=== PATIENT | female | born 1990 | race Caucasian/White ===

== ENCOUNTER → 2017-10-28 | Outpatient (CLI) | payer OTHER ==
[~2017-10-28] MED LIST: GASTROGRAFIN SOLUTION 30ML (Q9963) As Ordered; ISOVUE-370 76% 100ML VIAL (Q9967) As Ordered
== END ==
LOC: M RAD 14:03
DX: R59.1 Generalized enlarged lymph nodes (principal); Z97.5 Presence of (intrauterine) contraceptive device; N85.4 Malposition of uterus
CPT/HCPCS: Q9963

== ENCOUNTER → 2017-11-06 | Outpatient (CLI) | payer OTHER | LOC: M RADPRO 11:40 | DX: R59.0 Localized enlarged lymph nodes (principal); R53.83 Other fatigue; R63.4 Abnormal weight loss; Z79.899 Other long term (current) drug therapy | CPT/HCPCS: 76536 ==

== ENCOUNTER → 2018-03-03 | Outpatient (CLI) | payer OTHER | LOC: M SLEEP 20:00 | DX: R53.83 Other fatigue (principal) ==

== ENCOUNTER → 2018-03-04 | Outpatient (CLI) | payer OTHER ==
[2018-03-15 11:07] LABS: SUMMARY SEE SEPARATE REPORT
== END ==
LOC: M SLEEP 07:00
DX: R40.0 Somnolence (principal)
CPT/HCPCS: 95810

== ENCOUNTER 2018-09-29 11:12 | Emergency (ER) | payer OTHER ==
[~2018-09-29] VITALS: Ht 149.9 cm; Wt 53.6 kg
[~2018-09-29 11:12] MED LIST changes: +BIOT1CAP2 PO; +FISH100049 PO; -GASTROGRAFIN SOLUTION 30ML (Q9963) As Ordered; -ISOVUE-370 76% 100ML VIAL (Q9967) As Ordered; +MULT1TAB8 PO; +PARO20TA4 PO; +TRET0.1G10 EX; +[UNRECOGNIZED DRUG - MIXTURE]
[2018-09-29] MEDS ORDERED: MODA200T15 PO (11:20)
[2018-09-29] MEDS ORDERED: PARO20TA3 PO (11:20)
[2018-09-29 13:45] LABS: INFLUENZA A AMPLIFICATION NEGATIVE (NEGATIVE); INFLUENZA B AMPLIFICATION NEGATIVE (NEGATIVE)
--- NOTE | 2018-09-29 13:58 | REP ---
Clinical: Possible aspiration pneumonia . Technique: PA and lateral. Comparison: None . Findings: The mediastinum and cardiac silhouette are normal. The lung volumes are symmetric and normal. No acute consolidation, effusion, or pneumothorax. Skeletal structures are intact and normal for age. Impression: Normal chest x-ray. No focal consolidation. Electronically Signed by Jimy Grace MD 09/29/2018 01:50 P
[2018-09-29 14:35] LABS: BASO # 0.1 10^3/uL (0.0-0.2); BASO % 1.4 % (0.0-1.0); EOS # 0.1 10^3/uL (0.0-0.50); EOS % 1.3 % (0.0-3.0); HEMATOCRIT 41.6 % (36.0-47.0); HEMOGLOBIN 14.1 g/dl (12.0-15.5); LYMPH # 2.3 10^3/uL (1.5-6.5); LYMPH % 28.8 % (24.0-44.0); MEAN CORPUSCULAR HEMOGLOBIN 31.2 pg (27.0-33.0); MEAN CORPUSCULAR HGB CONC 33.9 g/dl (32.0-36.5); MONO # 0.8 10^3/uL (0.0-0.8); MONO % 9.4 % (0.0-5.0); NEUTROPHILS # 4.7 10^3/uL (1.8-7.7); NEUTROPHILS % 58.8 % (36.0-66.0); PLATELET COUNT, AUTOMATED 310 10^3/uL (150-450); RED BLOOD COUNT 4.52 10^6/uL (4.00-5.40)
[2018-09-29 15:05] LABS: MONO SCRN NEGATIVE (NEGATIVE)
[2018-09-29 15:08] LABS: ALT/SGPT 25 U/L (12-78); BILIRUBIN,DIRECT < 0.1 MG/DL (0.0-0.2); BILIRUBIN,TOTAL 0.2 MG/DL (0.2-1.0); BLOOD UREA NITROGEN 8 MG/DL (7-18); CALCIUM LEVEL 8.9 MG/DL (8.5-10.1); CARBON DIOXIDE LEVEL 27 MEQ/L (21-32); CHLORIDE LEVEL 105 MEQ/L (98-107); CREATININE FOR GFR 0.79 MG/DL (0.55-1.30); GLOMERULAR FILTRATION RATE > 60.0 (>60); GLUCOSE, FASTING 82 MG/DL (70-100); POTASSIUM SERUM 4.2 MEQ/L (3.5-5.1); SODIUM LEVEL 138 MEQ/L (136-145); TOTAL PROTEIN 7.3 GM/DL (6.4-8.2)
[2018-09-29 15:17] VITALS: BP 131/84
== END 2018-09-29 15:18 | disposition home or self-care (01) ==
LOC: M ED 11:12
DX: B34.9 Viral infection, unspecified (principal); K58.9 Irritable bowel syndrome, unspecified; Z79.899 Other long term (current) drug therapy; Z87.820 Personal history of traumatic brain injury; Z88.0 Allergy status to penicillin; Z88.1 Allergy status to other antibiotic agents

== ENCOUNTER → 2019-06-19 | Outpatient (CLI) | payer OTHER ==
[~2019-06-19] MED LIST changes: +GASTROGRAFIN SOLUTION 30ML (Q9963) As Ordered ONE; +MODA200T15 PO; +PARO20TA3 PO
--- NOTE | 2019-06-19 16:19 | REP ---
HISTORY: Abdominal pain. COMPARISON: 10/28/2017, the only prior. The lack of intravenous contrast significantly decreases the sensitivity of the examination. The lung bases are clear and unchanged. Limited evaluation of the solid intraabdominal organs show no gross abnormalities or significant changes from the prior exam. Limited evaluation of the pancreas, adrenal glands and kidneys show no gross abnormalities or significant changes from the prior exam. Limited evaluation of the abdominal aorta and paraaortic regions show no gross abnormalities or significant changes from the prior exam. Limited evaluation of the bowel loops and their mesenteries show no gross abnormalities or significant changes from the prior exam. There is no free fluid or free air. CT PELVIS: In the left hemipelvis there is an oval shaped 3 mm sized low density structure which has near water density Hounsfield unit readings. This most likely of ovarian origin and represents a change from the prior exam. There is no free pelvic fluid or air. The IUD seen in the uterus on the prior exam is no longer present. The pelvic bowel loops are unremarkable, although seen in limited fashion. Bone window technique throughout the examination shows no significant change in the appearance of the osseous structures. IMPRESSION: 1. Likely left ovarian cyst as described above. Pelvic ultrasonography would be confirmatory. 2. Exam limitations and other findings as described above. Electronically Signed by Benito Handy DO 06/19/2019 04:22 P
== END ==
LOC: M RAD 14:08
PROVIDERS: ATTEND Family Medicine
DX: R10.84 Generalized abdominal pain (principal)
CPT/HCPCS: 74176; Q9963